=== PATIENT | female | born 1970 | race African-American/Black ===

== ENCOUNTER 2018-10-25 06:25 | Day surgery (SDC) | payer OTHER ==
[2018-10-25 07:34] LABS: ADD MAN DIFF? NO
[2018-10-25 07:39] LABS: WHITE BLOOD COUNT 4.2 10^3/ul (4.8-10.8)
[2018-10-25 07:40] LABS: BASOPHILS % 0.7 % (0.0-2.0); EOSINOPHILS # 0.1 10^3/ul (0.0-0.5); EOSINOPHILS % 2.4 % (0.0-7.0); HEMATOCRIT 34.3 % (37.0-47.0); HEMOGLOBIN 10.7 g/dl (12.0-16.0); LYMPHOCYTES # 2.1 10^3/ul (0.8-2.9); MEAN CORPUSCULAR HEMOGLOBIN 24.7 pg (29.0-33.0); MEAN CORPUSCULAR HGB CONC 31.2 g/dl (32.0-37.0); MEAN CORPUSCULAR VOLUME 79.2 fl (82.0-101.0); MONOCYTE # 0.3 10^3/ul (0.3-0.9); MONOCYTES % 7.3 % (0.0-11.0); NEUTROPHIL # 1.7 10^3/ul (1.6-7.5); NEUTROPHILS % 39.4 % (39.0-77.0); PLATELET COUNT 218 10^3/UL (140-415); RED BLOOD COUNT 4.33 10^6/ul (4.20-5.40); RED CELL DISTRIBUTION WIDTH 14.9 % (11.5-14.5)
[2018-10-25 07:56] LABS: INR 0.83; PROTIME 11.5 Sec (11.9-14.9); PT RATIO 0.9
[2018-10-25 07:57] LABS: HOLD TRANSMISSIONS 1; PARTIAL THROMBOPLASTIN TIME 29.4 Sec (23.0-35.0)
[2018-10-25 08:02] LABS: ALANINE AMINOTRANSFERASE 21 IU/L (13-69); ALBUMIN 3.8 g/dl (3.3-4.9); ALBUMIN/GLOBULIN RATIO 1.15; ALKALINE PHOSPHATASE 47 IU/L (42-121); ANION GAP 11 (5-13); ASPARTATE AMINO TRANSFERASE 24 IU/L (15-46); BLOOD UREA NITROGEN 12 mg/dl (7-20); CARBON DIOXIDE 29 mmol/L (21-31); CHLORIDE 103 mmol/L (97-110); CREATININE 0.73 mg/dl (0.44-1.00); Estimated GFR > 60 mL/min (>60); GLUCOSE 97 mg/dl (70-220); SODIUM 143 mmol/L (135-144); TOTAL PROTEIN 7.1 g/dl (6.1-8.1)
[2018-10-25] MEDS ORDERED: PROPOFOL 20 ML (08:59)
[2018-10-25] MEDS ORDERED: FENTAnyl 50 MCG/ML VIAL ×2 (08:59→11:23)
[2018-10-25] MEDS ORDERED: GLYCOPYRROLATE 0.4 MG INJ (08:59)
[2018-10-25] MEDS ORDERED: LIDOCAINE 2% (SDV) 5 ML INJ (08:59)
[2018-10-25] MEDS ORDERED: NEOSTIGMINE 3 MG/3 ML SYRINGE (08:59)
[2018-10-25] MEDS ORDERED: MIDAZOLAM 1 MG/ML 2 ML INJ (08:59)
[2018-10-25] MEDS ORDERED: ROCURONIUM 50 MG INJ (08:59)
[2018-10-25] MEDS ORDERED: CLINDAMYCIN 900 MG/D5W (PMX) 50 ML IVPB (09:46)
[2018-10-25] MEDS ORDERED: DEXAMETHASONE 4 MG/ML 5 ML INJ (10:07)
[2018-10-25] MEDS ORDERED: ONDANSETRON 4 MG INJ ×2 (10:07→11:23)
[2018-10-25] MEDS ORDERED: SUGAMMADEX SODIUM 200 MG/2 ML VIAL IV (10:15)
[2018-10-25] MEDS: ONDANSETRON 4 MG INJ IV (11:26)
[2018-10-25] MEDS: FENTAnyl 50 MCG/ML VIAL IV (11:27)
== END 2018-10-25 13:29 | disposition home or self-care (01) ==
LOC: SDS 06:25
DX: N93.9 Abnormal uterine and vaginal bleeding, unspecified (principal)
CPT/HCPCS: 58120; 80053; 85025; 85610; 85730; 86850; 86900; 86901; 88305; 93005